=== PATIENT | female | born 1995 | race American Indian/Alaskan Native ===

== ENCOUNTER 2021-02-28 23:19 | Emergency (ER) | payer MEDICAID ==
[2021-02-28 23:22] VITALS: BP 135/89
[2021-03-01] MEDS ORDERED: ACETAMINOPHEN 325 MG TAB PO ONE (01:05)
--- NOTE | 2021-03-01 01:10 | Emergency Department Report ---
Upper Extremity - HPI Chief Complaint: Animal Bite Stated Complaint: DOG BITE Time Seen by Provider: 03/01/21 01:04 Upper Extremity: Right Hand Occurred When: Today Mechanism: Other Severity: mild (States she only wants Tylenol or Motrin for pain) Symptoms: Yes Pain with Movement, Yes Limited Range of Movement, Yes Swelling, No Deformity, No Numbness, No Weakness Other History: 26-year-old -[place] female resents emergency department complaining of being bitten in the right hand by a cane Dakota while she was at a [employer] and slightly intoxicated. During this intoxicating process states that she approached the dog to pet the dog which is when the bite had occurred. Since the bite she reports having dull throbbing pain to the hand and decreased range of motion of the fourth digit with the suspicion of something being broken. ED Review of Systems ROS: Stated complaint: DOG BITE Other details as noted in HPI Comment: All other systems reviewed and negative ED Past Medical Hx - Past Medical History Previous Medical History?: No - Surgical History Past Surgical History?: No - Social History Smoking Status: Never Smoker Substance Use Type: Marijuana - Medications Home Medications: Home Medications Medication Instructions Recorded Confirmed Last Taken Type Amoxicillin/Potassium Clav 1 each PO BID #20 tablet 03/01/21 Unknown Rx [Augmentin 875-125 Tablet] Ketorolac [Toradol] 10 mg PO Q6H PRN #15 tablet 03/01/21 Unknown Rx Upper Extremity Exam - Exam General: Vital signs noted. No distress. Alert and acting appropriately. Head and Torso: No HEENT Abnormality, No Neck Tenderness, No Chest/Lungs Abnormality, No Abdominal Tenderness, No Back Tenderness Shoulder Exam: Yes Normal Range of Motion in Shoulder, No Shoulder Tenderness, No Clavicle Tenderness, No Shoulder Deformity, No AC Joint Tenderness Arm Exam: No Arm/Humerus Tenderness, No Arm Deformity Elbow: No Elbow Tenderness, No Normal Range of Motion in Elbow, No Elbow Deformity Forearm: No Forearm Tenderness, No Forearm Deformity, No Pain with Pronation, No Pain with Supination Wrist: Yes Normal ROM in Wrist, No Wrist Tenderness, No Wrist Deformity, No Snuffbox Tenderness, No Pain with Axial Thumb Compression Hand: Yes Hand Tenderness, Yes Normal ROM in Digit(s), No Hand Deformity, No Digit Tenderness, No Digit(s) Deformity, No Tendon Dysfunction CMS Exam: Yes Broken Skin, Yes Normal Distal Pulses, Yes Normal Capillary Refill, Yes Normal Distal Sensation ED Course Vital Signs 02/28/21 23:20 Temperature 97.8 F Pulse Rate 90 Respiratory 18 Rate Blood Pressure 135/89 O2 Sat by Pulse 100 Oximetry ED Medical Decision Making - Radiology Data Radiology results: report reviewed [address] [place] [address] XRay Report Signed Patient: MICAH URBINA MR#: [id number] : 1995 Acct:[id number] Age/Sex: 26 / F ADM Date: 02/28/21 Loc: ED Attending Dr: Ordering Physician: COLLETTE MCLAUGHLIN Date of Service: 03/01/21 Procedure(s): XR hand 3+V RT Accession Number(s): [id number] cc: COLLETTE MCLAUGHLIN Fluoro Time In Minutes: RIGHT HAND 3 VIEWS 0119 INDICATION: dog bite, pain and swelling COMPARISON: None available. FINDINGS: Bandaging artifact is seen. On AP view there appears to be a fracture of the medial cortex of the distal fourth metacarpal in the neck region with a trace of medial displacement. However, this is not seen on other views. No other fractures are seen. No dislocation is noted. No foreign bodies are obvious. Small amount of gas is seen in the soft tissues surrounding the base of the proximal phalanx of the ring finger which probably relates to the laceration. Signer Name: Khoa Murguia MD Signed: 03/01/2021 1:42 AM Workstation Name: [id number] Transcribed By: GJ Dictated By: Khoa Murguia MD Electronically Authenticated By: Khoa Murguia MD Signed Date/Time: 03/01/21141 DD/ 0139 TD/TT: Print Cancel - Medical Decision Making 26-year-old -[place] female presents emergency department with hand pain status post dog bite with a cane [place] resulting in puncture wounds to the skin and fracture to the fourth meta carpal.. She was treated with wound irrigation and cleaning followed by a gram of Ancef IM in conjunction with oral pain medications. She was discharged home with antibiotics and pain medication as well and advised on close close follow-up and follow-up with orthopedic for definitive management of her open fracture. Patient does request no narcotic pain medications so she will be receiving Toradol for control Critical care attestation.: If time is entered above; I have spent that time in minutes in the direct care of this critically ill patient, excluding procedure time. ED Disposition Clinical Impression: Dog bite Disposition: DC-01 TO HOME OR SELFCARE Is pt being admited?: No Does the pt Need Aspirin: No Condition: Stable Instructions: Animal Bite, Adult Prescriptions: Amoxicillin/Potassium Clav [Augmentin 875-125 Tablet] 1 each PO BID #20 tablet Ketorolac [Toradol] 10 mg PO Q6H PRN #15 tablet PRN Reason: Pain Referrals: PRIMARY CARE, [Primary Care Provider] - 3-5 Days [facility] [Provider Group] - 3-5 Days
[2021-03-01] MEDS ORDERED: KETOROLAC 30 MG/1 ML INJ IM ONE (01:37)
--- NOTE | 2021-03-01 01:46 | XRay Report ---
RIGHT HAND 3 VIEWS 0119 INDICATION: dog bite, pain and swelling COMPARISON: None available. FINDINGS: Bandaging artifact is seen. On AP view there appears to be a fracture of the medial cortex of the distal fourth metacarpal in the neck region with a trace of medial displacement. However, this is not seen on other views. No other fractures are seen. No dislocation is noted. No foreign bodies are obvious. Small amount of gas is seen in the soft tissues surrounding the base of the proximal pha lanx of the ring finger which probably relates to the laceration. Signer Name: Khoa Murguia MD Signed: 03/01/2021 1:42 AM Workstation Name: [id number]
[2021-03-01] MEDS ORDERED: ceFAZolin 1 GM VIAL IM STA (01:55)
== END 2021-03-01 02:59 | disposition home or self-care (01) ==
LOC: ED 23:19
DX: S61.451A Open bite of right hand, initial encounter (principal); F12.90 Cannabis use, unspecified, uncomplicated; Z79.899 Other long term (current) drug therapy; W54.0XXA Bitten by dog, initial encounter; Y93.89 Activity, other specified; Y92.89 Other specified places as the place of occurrence of the external cause; Y99.8 Other external cause status
CPT/HCPCS: 29125; 73130; 96372; 99283; J0690; J1885

== ENCOUNTER 2022-04-19 19:53 | Emergency (ER) | payer OTHER, MEDICAID ==
[2022-04-20] MEDS ORDERED: IBUPROFEN 800 MG TAB PO ONE (01:21)
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
[2022-04-20 03:57] VITALS: BP 124/79
== END 2022-04-20 03:58 | disposition home or self-care (01) ==
LOC: ED 19:53
DX: S00.83XA Contusion of other part of head, initial encounter (principal); V89.2XXA Person injured in unspecified motor-vehicle accident, traffic, initial encounter; Y93.89 Activity, other specified; Y92.89 Other specified places as the place of occurrence of the external cause; Y99.8 Other external cause status
CPT/HCPCS: 99282

== ENCOUNTER 2022-06-09 00:13 | Emergency (ER) | payer MEDICAID ==
[2022-06-09 00:50] VITALS: BP 146/82
[2022-06-09 01:57] LABS: HCG Qualitative,Urine Negative (Negative)
[2022-06-09 02:26] LABS: Color,Urine Yellow (Yellow)
== END 2022-06-09 05:48 | disposition left against medical advice (07) ==
LOC: ED 00:13
DX: N89.8 Other specified noninflammatory disorders of vagina (principal); Z53.21 Procedure and treatment not carried out due to patient leaving prior to being seen by health care provider
CPT/HCPCS: 81001; 81025; 87210